=== PATIENT | male | born 1955 | race Caucasian/White ===

== ENCOUNTER 2016-09-11 11:16 | Observation (INO) | payer BC ==
[2016-09-11] MEDS ORDERED: NS 0.9% 1000 ML* 1,000 ML IV ONE ×3 (11:18→13:57)
--- NOTE | 2016-09-11 11:44 | RAD ---
INDICATION: Neurologic changes, code solitario. COMPARISON: Comparison is made with a prior CT of the brain from July 27, 2008. TECHNIQUE: Contiguous axial sections of the brain were obtained from the skull base to the vertex without contrast. FINDINGS: The ventricles, cisterns and sulci are within normal limits. There is a small area of decreased attenuation present in the subcortical white matter in the posterior left frontal lobe possibly representing a subacute or chronic infarct. No mass effect is present. No other focal abnormalities are seen. There is no evidence for hemorrhage. No significant focal osseous abnormality is seen. The visualized portion of the paranasal sinuses and mastoid air cells appear clear. The results of this examination were called to David clinician at 1134 hours. IMPRESSION: THERE IS A SMALL AREA OF DECREASED DENSITY WITHIN THE SUBCORTICAL WHITE MATTER IN THE POSTERIOR LEFT FRONTAL LOBE POSSIBLY REPRESENTING A SUBACUTE OR CHRONIC INFARCT. RECOMMEND MRI IMAGING FOR FURTHER EVALUATION.
--- NOTE | 2016-09-11 11:50 | RAD ---
INDICATION: Change in mental status. Carotid solitario. COMPARISON: Chest x-ray September 23, 2011 TECHNIQUE: An AP seated view is submitted. FINDINGS: Bones/Soft Tissues: There are no acute bony findings. Cardiomediastinal: The cardiomediastinal silhouette is normal. Lungs: There are no acute infiltrates. There are chronic pleural and parenchymal changes in the left lung base with left-sided rib fractures with deformity. Pleura: There are no pleural effusions. Other: None IMPRESSION: PERSISTENT PLEURAL AND PARENCHYMAL CHANGES LEFT LUNG BASE WITH RIB FRACTURES. NO ACUTE FINDINGS.
[2016-09-11 13:02] LABS: Hematocrit 42 % (42-52); Hemoglobin 14.2 g/dl (14.0-18.0); Mean Corpuscular HGB Conc 34 g/dl (31-36); Mean Corpuscular Hemoglobin 32 pg (27-31); Mean Corpuscular Volume 95 fL (80-94); Mean Platelet Volume 9 um3 (7.4-10.4); Red Blood Count 4.41 10^6/ul (4.0-5.4); Red Cell Distribution Width 14 % (10.5-15)
[2016-09-11 13:35] LABS: Albumin 4.2 g/dL (3.2-5.2); BUN/Creatinine Ratio 12.9 (8-20); Calcium 9.5 mg/dL (8.6-10.3); EGFR African American 62.2 (>60); EGFR Non-African American 48.4 (>60); Globulin 2.8 g/dL (2-4); HDL Cholesterol 34.8 mg/dL; Total Bilirubin 0.5 mg/dL (0.2-1.0)
--- NOTE | 2016-09-11 13:37 | RAD ---
Indication: Neck pain after fall. CT of the cervical spine was obtained in the axial plane. Sagittal and coronal reconstructed images were obtained. The skull base demonstrates no evidence of fracture. Mastoid air cells are unremarkable. Degenerative changes of the atlantoaxial joint is noted. No fracture of C1 or C2 is noted. At C2-C3 spondylitic ridge flattens the thecal sac. Facet arthropathy is noted. No central or foraminal stenosis is noted. At C3-C4 spondylitic ridge is noted. Bilateral uncovertebral joint hypertrophy narrows both foramen worse on the right than on the left. At C4-C5 spondylitic ridge is noted. Bilateral uncovertebral joint hypertrophy with no definite foraminal stenosis is noted. At C5-C6 spondylitic ridge is noted. Bilateral uncovertebral hypertrophy is noted. Right uncovertebral joint hypertrophy narrows the right foramen. At C6-C7 bilateral uncovertebral joint hypertrophy is noted. No central foraminal stenosis is noted. There is calcification of the anterior longitudinal ligament from C3-C4, C4-C5 and C5-C6. IMPRESSION: No fracture is identified. Extensive degenerative disc disease at C3-C4, C4-C5, C5-C6 and C6-C7 with uncovertebral joint hypertrophy bilateral foraminal stenosis at multiple levels.
[2016-09-11 13:40] LABS: Potassium 6.1 mmol/L (3.5-5.0)
[2016-09-11] MEDS ORDERED: Calcium Gluconate INJ* 1 GM in NS 0.9% 50 ML* 50 ML IVPB ONE (13:42)
[2016-09-11] MEDS ORDERED: Insulin REGULAR(*) 1 UNITS UNIT IV PUSH ONE (13:42)
[2016-09-11] MEDS ORDERED: Dextrose 50% Syringe 50 ML* 25 GM/50 ML SYRINGE IV PUSH ONE (13:42)
[2016-09-11] MEDS ORDERED: Albuterol 2.5 MG/3 ML NEB.SOL* (0.083%) INH ONE (13:42)
[2016-09-11] MEDS ORDERED: Sodium Polystyrene ORAL.SOL* 15 GM/60 ML BTL PO ONE (13:42)
[2016-09-11] MEDS ORDERED: Morphine INJ* 4 MG/ML 1 ML SYRINGE IM ONE (14:25)
[2016-09-11] MEDS ORDERED: cefTRIAXone(*) 1 GM in NS 0.9% 50 ML* 50 ML IVPB ONE (14:26)
[2016-09-11] MEDS ORDERED: Ondansetron INJ* 2 MG/ML VIAL IV ONE (14:27)
[2016-09-11 15:41] LABS: Hematocrit 39 % (42-52); Hemoglobin 13.1 g/dl (14.0-18.0); Mean Corpuscular HGB Conc 34 g/dl (31-36); Mean Corpuscular Hemoglobin 32 pg (27-31); Mean Corpuscular Volume 95 fL (80-94); Mean Platelet Volume 9 um3 (7.4-10.4); Red Blood Count 4.08 10^6/ul (4.0-5.4); Red Cell Distribution Width 14 % (10.5-15); White Blood Count 14.1 10^3/ul (3.5-10.8)
[2016-09-11 15:47] LABS: Urine Bilirubin Negative (Negative); Urine Glucose Negative (Negative); Urine Nitrite Negative (Negative)
[2016-09-11 15:58] LABS: Albumin 3.7 g/dL (3.2-5.2); BUN/Creatinine Ratio 16.8 (8-20); Calcium 8.5 mg/dL (8.6-10.3); EGFR African American 71.1 (>60); EGFR Non-African American 55.3 (>60); Globulin 2.5 g/dL (2-4); Potassium 4.3 mmol/L (3.5-5.0); Total Bilirubin 0.6 mg/dL (0.2-1.0); Total Protein 6.2 g/dL (6.4-8.9)
[2016-09-11] MEDS ORDERED: Dextrose 50% Syringe 50 ML* 25 GM/50 ML SYRINGE IV PUSH PRN (16:31)
[2016-09-11] MEDS ORDERED: Acetaminophen TAB* 325 MG PO PRN (16:31)
[2016-09-11] MEDS ORDERED: Ondansetron INJ* 2 MG/ML VIAL IV PRN (16:31)
[2016-09-11] MEDS ORDERED: Thiamine IV* 100 MG, Folic Acid IV* 1 MG, Multiple Vitamin IV ADULT* 10 ML in NS 0.9% 1... IV ONE (16:38)
[2016-09-11] MEDS ORDERED: LORazepam TAB(*) 1 MG PO SCH (17:00)
--- NOTE | 2016-09-11 17:16 | ED ---
Antonio Rodriguez Billy, scribed for Sky Whatley MD on 09/11/16 at 1158 . Neurological HPI - HPI Summary HPI Summary: Patient is a 61 year-old male with a history of TIA BIBA to [facility] for evaluation of focal neurological deficit this morning. He states that he had been drinking alcohol last night, and consumed "close to one bottle of rum." Patient reports that he had an unwitnessed syncopal episode at approximately 0900 as he was on the way to the bathroom and estimates that he was unconscious for approximately 15 minutes. When he awoke, he had numbness, weakness, and tingling to both upper extremities. EMS states that on arrival, right information technology program manager strength was weaker than left and they appreciated RUE pronator drift. Physician Specialist strength became equal en route, and drift improved but did not resolve entirely. They did not appreciate any facial droop or speech impairment. - History of Current Complaint Chief Complaint: EDNeurologicalDeficit Stated Complaint: CODE DANIELLE Time Seen by Provider: 09/11/16 11:17 Last Known Well Date: 09/11/16 09:00 Hx Obtained From: Patient Onset/Duration: Sudden Onset Timing: Constant Onset Severity: Moderate Current Severity: Moderate Neurological Deficit Location: RUE Character: Numbness/Tingling, Motor Weakness Episode Lasting: Seconds/Minutes Number of Episodes: 1 Syncope Context: Unwitnessed Aggravating: Unknown Alleviating: Unknown Associated Signs and Symptoms: Positive: Weakness, Numbness - Allergy/Home Medications Allergies/Adverse Reactions: Allergies Allergy/AdvReac Type Severity Reaction Status Date / Time No Known Allergies Allergy Verified 09/11/16 12:32 Home Medications: Home Medications Amitriptyline TAB* [Elavil TAB*] 25 mg PO BEDTIME 09/11/16 [History Confirmed ] Atorvastatin* [Lipitor*] 20 mg PO DAILY 09/11/16 [History Confirmed 09/11/16] Carvedilol TAB* [Coreg TAB*] 6.25 mg PO BID 09/11/16 [History Confirmed 09/11/16 ] Glimepiride (NF) 4 mg PO QAM 09/11/16 [History Confirmed 09/11/16] Niacin 500 mg PO DAILY 09/11/16 [History Confirmed 09/11/16] Jackson-3 Fatty Acids (Nf) [Fish Oil (NF)] 2,000 mg PO DAILY 09/11/16 [History Confirmed 09/11/16] Ramipril CAP* [Altace CAP*] 10 mg PO DAILY 09/11/16 [History Confirmed 09/11/16] Spironolactone TAB* [Aldactone TAB*] 25 mg PO DAILY 09/11/16 [History Confirmed 09/11/16] Tamsulosin CAP* [Flomax CAP*] 0.4 mg PO BEDTIME 09/11/16 [History Confirmed 10/23] Warfarin TAB(*) [Coumadin TAB(*)] 5 mg PO SUTUTH 09/11/16 [History Confirmed 10/23] Warfarin TAB(*) [Coumadin TAB(*)] 10 mg PO MOWEFRSA 09/11/16 [History Confirmed 09/11/16] Zolpidem TAB* [Ambien TAB*] 10 mg PO BEDTIME PRN 09/11/16 [History Confirmed 10/23] metFORMIN* [Glucophage 500 MG TAB *] 1,000 mg PO BID 09/11/16 [History Confirmed 09/11/16] PMH/Surg Hx/FS Hx/Imm Hx Endocrine/Hematology History: Reports: Hx Diabetes Cardiovascular History: Reports: Hx Hypertension, Hx Myocardial Infarction Neurological History: Reports: Hx Transient Ischemic Attacks (TIA) Infectious Disease History: No Infectious Disease History: Denies: Traveled Outside the [place] in Last 30 Days - Family History Known Family History: Positive: Cardiac Disease, Diabetes - Social History Alcohol Use: Daily Hx Tobacco Use: Yes Smoking Status (MU): Current Every Day Smoker Review of Systems Negative: Fever Positive: Weakness, Paresthesia, Numbness, Syncope All Other Systems Reviewed And Are Negative: Yes Physical Exam - Summary Physical Exam Summary: VITAL SIGNS: Reviewed. GENERAL: Patient is a well developed and nourished male who is lying comfortable in the stretcher. Patient is not in any acute respiratory distress. HEAD AND FACE: There are abrasions to the right side of the head, face, and nose. EYES: PERRLA, EOMI x 2. EARS: Hearing grossly intact. MOUTH: Oropharynx within normal limits. NECK: Supple, trachea is midline, no adenopathy, no JVD, no carotid bruit. CHEST: Symmetric, no tenderness at palpation LUNGS: Clear to auscultation bilaterally. No wheezing or crackles. CVS: Regular rate and rhythm, S1 and S2 present, no murmurs or gallops appreciated. ABDOMEN: Soft, non-tender. Bowel sounds are normal. No abdominal abnormal pulsations. EXTREMITIES: Full ROM in all major joints, no edema, no cyanosis or clubbing. NEURO: Alert and oriented x 3. Speech is normal and follows commands. There is positive right upper extremity weakness and drift. GCS = 15. NIHSS = 1. See NIHSS findings for more details. SKIN: Dry and warm Triage Information Reviewed: Yes Vital Signs On Initial Exam: Initial Vitals Temp Pulse Resp BP Pulse Ox 97.6 F 81 16 91/56 92 09/11/16 11:45 09/11/16 11:45 09/11/16 11:45 09/11/16 11:45 09/11/16 11:45 Vital Signs Reviewed: Yes Diagnostics - Vital Signs Vital Signs Temp Pulse Resp BP Pulse Ox 09/11/16 11:45 97.6 F 81 16 91/56 92 - Laboratory Result Diagrams: 09/11/16 15:29 09/11/16 15:29 Lab Statement: Any lab studies that have been ordered have been reviewed, and results considered in the medical decision making process. - Radiology CXR Radiology Interpretation Completed By: Radiologist - PERSISTENT PLEURAL AND PARENCHYMAL CHANGES LEFT LUNG BASE WITH RIB FRACTURES. NO ACUTE FINDINGS. - CT Brain CT Interpretation Completed By: Radiologist - THERE IS A SMALL AREA OF DECREASED DENSITY WITHIN THE SUBCORTICAL WHITE MATTER IN THE POSTERIOR LEFT FRONTAL LOBE POSSIBLY REPRESENTING A SUBACUTE OR CHRONIC INFARCT. RECOMMEND MRI IMAGING FOR FURTHER EVALUATION. Cervical spine CT Interpretation Completed By: Radiologist - No fracture is identified. Extensive degenerative disc disease at C3-C4, C4-C5, C5-C6 and C6-C7 with uncovertebral joint hypertrophy bilateral foraminal stenosis at multiple levels. - EKG 1129 EKG Interpretation: NSR 81 bpm, Q-wave in III and V4, no ST elevation 1313 EKG Interpretation: NSR 90 bpm, low-voltage EKG, no STEMI NIH Scale - NIH Scale Level of Consciousness: Alert/Keenly Responsive Ask Patient the Month and His/Her Age: Both Correct Ask Pt to Open/Close Eyes and Physician Specialist/Release Non-Paretic Hand: Both Correctly Best Gaze (Only Horizontal Eye Movement): Normal Visual Field Testing: No Visual Loss Facial Paresis-Pt to Smile & Close Eyes or Grimace Symmetry: Normal/Symmetrical Motor Function - Right Arm: Drifts LT 10 seconds Motor Function - Left Arm: No Drift-Holds 10 Seconds Motor Function - Right Leg: No Drift-Holds 10 Seconds Motor Function - Left Leg: No Drift-Holds 10 Seconds Limb Ataxia-Must be out of Proportion to Weakness Present: Absent Sensory (Use Pinprick to Test Arms/Legs/Trunk/Face): Normal Best Language (Describe Picture, Name Items): No Aphasia Dysarthria (Read Several Words): Normal Extinction and Inattention: No Abnormality Total Score: 1 Re-Evaluation - Re-Evaluation First Eval Re-Evaluation Time: 11:53 Comment: Re-evaluation with Dr. Linder in room. Course/Dx - Course Assessment/Plan: Patient is a 61 year-old male with a history of TIA BIBA to [facility] for evaluation of focal neurological deficit this morning. He states that he had been drinking alcohol last night, and consumed "close to one bottle of rum." Patient reports that he had an unwitnessed syncopal episode at approximately 0900 as he was on the way to the bathroom and estimates that he was unconscious for approximately 15 minutes. When he awoke, he had numbness, weakness, and tingling to both upper extremities. EMS states that on arrival, right information technology program manager strength was weaker than left and they appreciated RUE pronator drift. Physician Specialist strength became equal en route, and drift improved but did not resolve entirely. They did not appreciate any facial droop or speech impairment. Bloodwork WNL except for WBC of 19 without bandemia. Potassium of 6.1, CO2 of 9, creatinine of 1.47, lactic acid 5.1, creatinine kinase 752. Initially, when he was seen, he had RUE weakness, therefore we called a Code Danielle. CT of the head shows there is a small area of decreased density within the subcortical white matter in the posterior left frontal lobe possibly representing a subacute or chronic infarct. Therefore, I requested consult from Dr. Linder. After his assessment, he reports that it could be a subacute infarct, however he recommended CT of the c-spine, and if negative, the patient will need MRI of the brain and c-spine without contrast. He is already taking Coumadin, therefore he is not a candidate for tPA, and also the time of onset of symptoms is unknown. In the ED course, patient was hypotensive and had an increased WBC and increased lactic acid, therefore he was started on 3 IV boluses of fluids, and he was given Rocephin as a broad spectrum antibiotic. The bloodwork showed that the patient was hyperkalemic without EKG changes, therefore he was given insulin, dextrose, kayexalate, and albuterol. I held the calcium gluconate since he had no EKG changes. At this time, I discussed the case with Dr. De La Garza from ICU services who examined the patient. Dr. De La Garza and Dr. Candelaria decided to repeat the bloodwork and will admit the patient to telemetry instead of ICU. The patient was also given morphine after his BP improved to 120/72. At this time, he is much more comfortable and will be admitted to Dr. Alexander service. I believe that the symptoms are secondary to possible ischemic CVA, syncope, rhabdomyolysis, and hyperkalemia. - Diagnoses Provider Diagnoses: Ischemic CVA, Syncope, Rhabdomyolysis, Hyperkalemia During the Visit The Following Alert/Code Occurred: Code Fleming - Code Danielle called at 1115 - Physician Notifications Discussed Care of Patient With: Dr. Sidhu (radiology) @ 1138: CT brain findings reviewed. Dr. Linder (neurology) @ 1141: will see in ED. Dr. Linder ( neurology) @ 1200: recommends CT c-spine. Patient is not eligible for tPA because he is on Coumadin. Additionally, the patient's reported time of onset is unreliable due to alcohol intoxication. Dr. Linder (neurology) @ 1233: recommends MRI w/o contrast of the head and neck if the CT c-spine returns negative. Dr. De La Garza (database support) @ 1418: recommends morphine and rocephin. Dr. Candelaria (hospitalist) @ 1528: accepts admission. Dr. Candelaria (hospitalist) @ 1623: patient to telemetry. - Critical Care Time Critical Care Time: 30-74 min Discharge - Discharge Plan Condition: Stable Disposition: ADMITTED TO [facility] Referrals: Willie Grimaldo MD [Primary Care Provider] - The documentation as recorded by the Antonio benavides Billy accurately reflects the service I personally performed and the decisions made by , Sky Whatley MD.
[2016-09-11] MEDS: HYDROmorphone* 1 MG/ML 1 ML SYR IV SLOW PU PRN ×2 (17:37→22:20)
--- NOTE | 2016-09-11 17:39 | RAD ---
HISTORY: Right-sided weakness. COMPARISONS: None TECHNIQUE: The following sequences were obtained of the head: Sagittal T1-weighted images, axial T2-weighted images, axial FLAIR images, axial susceptibility weighted images, axial T1-weighted images. Additionally, axial diffusion-weighted images were obtained with calculated apparent diffusion coefficients.. FINDINGS: HEMORRHAGE/INFARCT: There is no hemorrhage or acute infarct. MASSES/SHIFT: There is no mass or shift. EXTRA-AXIAL SPACES/MENINGES: There are no extra-axial fluid collections. SULCI AND VENTRICLES: The sulci and ventricles are normal in size and position for the patient's stated age. CEREBRUM: In the white matter tracts of the left parietal lobe (image 20 of 28) there is a 1 cm T2 bright focus with T2 bright focus extending into the adjacent cortex of the left parietal lobe. There is no corresponding increased signal seen on the diffusion-weighted imaging. There is also increased signal in the periventricular white matter as well as a 3 mm focus of increased T2 signal in the white matter tracts of the left frontal lobe. Elsewhere the solitario-white matter appears to be adequately preserved. BRAINSTEM: There are no focal parenchymal abnormalities. CEREBELLUM: There are no focal parenchymal abnormalities. The cerebellar tonsils are normal in size and position. SELLA: The sella is normal. PINEAL: The pineal region is clear. CP ANGLE/TEMPORAL BONES: The labyrinthine structures are grossly normal. VESSELS: Normal flow-voids are noted within the visualized vertebral vasculature. DIFFUSION ABNORMALITIES: There are no diffusion abnormalities. PARANASAL SINUSES/MASTOIDS: The paranasal sinuses are clear. ORBITS: The orbits are unremarkable. BONES AND SOFT TISSUE: No bone or soft tissue abnormalities are noted. IMPRESSION: THERE IS A 1 CM FOCUS OF INCREASED FLUID DENSITY IN THE LEFT PARIETAL LOBE WHITE MATTER TRACTS THAT EXTENDS TO THE NEIGHBORING CORTEX. THERE IS NO CORRESPONDING INCREASED SIGNAL ON DIFFUSION-WEIGHTED IMAGING AND THEREFORE A SUBACUTE TO CHRONIC IS FAVORED. THERE IS NO EVIDENCE OF ACUTE TERRITORIAL INFARCTION OR ACUTE INTRACRANIAL HEMORRHAGE.
--- NOTE | 2016-09-11 18:05 | RAD ---
INDICATION: Right upper extremity weakness COMPARISON: Same day CT the cervical spine that demonstrates advanced multilevel degenerative change. TECHNIQUE: Coronal T2, sagittal T1, inversion recovery, T2, and axial T1, T2, and gradient echo images were acquired. FINDINGS: The sella and craniocervical junction appear unremarkable. There are no intrinsic abnormalities of the cord. On the sagittal view there is mild reversal of the normal cervical lordosis. The vertebral bodies and facet joints are otherwise appropriately aligned. The atlantodental interval is normal. Axial view images: Less otherwise specified below there is no significant central canal stenosis or neural foraminal stenosis. C2-C3: There is no significant central canal or neural foraminal stenoses. C3-C4: There is broad-based disc protrusion eccentric towards the right that extends into the neural foramen and combines with facet arthropathy and uncovertebral hypertrophy to cause severe central canal stenosis, severe right neural foraminal stenosis and mild left neural foraminal stenosis. C4-C5: Broad-based disc protrusion combines with facet arthropathy and uncovertebral hypertrophy to cause moderate central canal stenosis and mild bilateral neural foraminal stenosis. C5-C6: Broad-based disc protrusion combines with facet arthropathy and uncovertebral hypertrophy to cause mild central canal stenosis, moderate right neural foraminal stenosis and mild left neural foraminal stenosis. C6-C7: Broad-based disc protrusion eccentric towards the left combines with facet arthropathy and uncovertebral hypertrophy causing very mild central canal stenosis and moderate left neural foraminal stenosis. C7-T1: There is no significant central canal or neural foraminal stenoses. IMPRESSION: Multilevel degenerative change causing multilevel central canal and neural foraminal stenoses most severely affecting C3/C4.
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
[2016-09-11 21:02] LABS: Troponin I 0.01 ng/mL (<0.04)
[2016-09-11] MEDS: Insulin LISPRO* 1 UNITS UNIT SUBCUT SCH (21:47)
[2016-09-11] MEDS: Amitriptyline TAB* 25 MG PO SCH (22:35)
[2016-09-11] MEDS: Carvedilol TAB* 6.25 MG PO SCH (22:35)
[2016-09-11] MEDS: Zolpidem TAB* 10 MG PO PRN (22:36)
[2016-09-11] MEDS: Tamsulosin CAP* 0.4 MG PO SCH (22:36)
--- NOTE | 2016-09-12 00:59 | HP ---
HISTORY AND PHYSICAL: DATE OF ADMISSION: 09/11/16 PRIMARY CARE PROVIDER: Dr. Grimaldo ATTENDING PHYSICIAN WHILE IN THE HOSPITAL: Dr. Ronel Avelar *(report dictated by Juventino Driver NP). CHIEF COMPLAINT: Syncope. HISTORY OF PRESENT ILLNESS: Mr. Herring is a 61-year-old male patient. He has a history of coronary artery disease, history of CO, TIA, diabetes, and hypertension. He also has a history of alcohol use. He says he binge drinks at least twice a week in the office and when he goes to a bar, he drinks to excess. He comes in to the ER today stating that last night he was at [facility]. He drank several drinks of rum. He says he went to bed around 10 o' clock in his recliner. He thinks around 6 o'clock in the morning, he woke up and went to go use the bathroom. He says while he was walking, he became weak. He fell to his knees, crawled to the bathroom, got on the toilet, was going to have a bowel movement, and the next thing he knew, it was 9 o'clock in the morning. He woke up and he was between the bathroom toilet and the edge of his bathtub. The patient says that he does not recall this. When he came to, both his arms were very weak. He could not move his arms. He had pain in his neck. It took him about 45 minutes to be able to move and crawl, to get to the phone and call 911. He came in to the hospital. He denies any history of seizures or syncope in the past. He says that he thinks he may have been on the ground for about 3 hours. He came in to the ER and it was found that he has right-sided weakness on the arm and a Code Danielle was called. He was evaluated by Dr. Linder. We were asked to evaluate the patient in admission. The patient states that he had no chest pain to his recollection before or after the fall, and there were no complaints of incontinence of stool or urine. He was evaluated in the ER and he was noted to have several lab abnormalities. He had an elevated white count. In addition to this, his potassium was elevated , his bicarb was elevated and he had a high lactic acid. Hospitalist service was asked to evaluate for admission. PAST MEDICAL HISTORY: Significant for: 1. CAD. 2. CO. 3. TIA. 4. Diabetes. 5. Hypertension. PAST SURGICAL HISTORY: Significant for heart catheterization. HOME MEDICATIONS: Include: 1. Metformin 1000 mg p.o. twice a day. 2. Ambien 10 mg at bedtime as needed. 3. Warfarin 5 mg Friday, Friday, . 4. Warfarin 10 mg Friday, Friday, Friday, Friday. 5. Flomax 0.4 mg p.o. at bedtime. 6. Spironolactone 25 mg p.o. daily. 7. Altace 10 mg daily. 8. [place]-3 fatty acids 2000 mg p.o. daily. 9. Niacin 500 mg daily. 10. Glimepiride 4 mg daily. 11. Carvedilol 6.25 mg p.o. b.i.d. 12. Lipitor 20 mg daily. 13. Amitriptyline 25 mg p.o. at bedtime. ALLERGIES TO MEDICATIONS: Include no known drug allergies. FAMILY HISTORY: His father had a history of CO. Mother's history is reviewed and noncontributory. SOCIAL HISTORY: He is a former smoker. He does binge drink. He says he binge drinks to excess at least twice a week. He lives alone. Surrogate decision maker is his sister. REVIEW OF SYSTEMS: There is no documented fever. He denied any significant weight change. There was no double vision. There is no ear discharge. He denies having any rhinorrhea. There is no sore throat. No thyroid enlargement. Denied having any chest pain prior to or after the fall. He denies having any nausea, vomiting, or any abdominal pain. Denied any chest pain and he denied having any shortness of breath. No abdominal pain. No nausea. No vomiting. No dysuria. No frequency. There was a loss of consciousness and no report of seizure. Review of 14 systems completed, all others negative. PHYSICAL EXAMINATION GENERAL: At this time, Mr. Herring is a 61-year-old male patient. He appears well nourished, well developed. He does not appear to be in any acute distress. VITAL SIGNS: Blood pressure 126/75, pulse of 100, respirations 18, O2 sat 96%, and temperature 97.6. HEENT: Head atraumatic with the exception he does have an abrasion to his nose. Otherwise atraumatic. Eyes: EOMs intact. Sclerae are anicteric. Pupils react to light. Throat: Oral mucosa appeared to be dry. No oropharyngeal erythema. NECK: Supple. There was no point tenderness along the palpation of the cervical spine. LUNGS: Clear to auscultation. No wheezes, rales, or rhonchi. HEART: Sounds S1, S2. Regular rate and rhythm. No murmurs, rubs, or gallops. ABDOMEN: Soft, flat, and nontender. Bowel sounds present. EXTREMITIES: Pulses were 2+ throughout. He has 5/5 strength to lower extremities, 5/5 strength in the left upper extremity. In the right upper extremity, he had about 3/5 strength. The right upper extremity is certainly weaker than the left. NEUROLOGIC: He is awake, he is alert, and he is oriented x3. His speech is clear. His tongue is midline. He had a weaker shuttler on the right compared to the left. Again, he is unable to lift the arm completely above his shoulder as he says that there is obvious weakness to the right arm, it is about a 3/5 strength compared to the left. He is unable to do [id number] on the right side because of the weakness, he can do it on the left side. No facial drooping. No other gross focal deficits. SKIN: Intact. LABORATORY DATA AND DIAGNOSTIC STUDIES: His labs today revealed WBC initially 19.0, now 14.1. His hemoglobin was 13.1, hematocrit 39, his RBCs were 4.08. His platelet count was 174. His INR was 3.63. His PTT was 35.6. Sodium was 132, the potassium was 4.3, the chloride was 101. The bicarb was 19, it was 9. Potassium initially was 6.3, it is now 6.1. His BUN was 22, creatinine 1.31, I do not have a previous for comparison. His lactic was 3.8, it was 5.1. Glucose 179. His AST 51, ALT 66, CK 752, troponin 0.00. Albumin of 4.2. Urine was obtained, it was negative. Toxicology is pending. He had multiple imaging here in the ED and a brain CT which showed impression: Small area of decreased density within the subcortical white matter in the posterior left frontal lobe, possibly representing a subacute or chronic infarct. Recommend MRI imaging for further evaluation. He had a chest x-ray obtained today as well, which revealed persistent pleural and parenchymal changes, left lung base, with rib fractures, no acute findings. He had a cervical spine CT which showed impression: No fracture is identified. Extensive degenerative disk disease at C3-4, C4-5, C5-6, C6-7 with uncovertebral joint hypertrophy. Lateral foraminal stenosis at multiple levels. He had an EKG obtained today which showed a normal sinus rhythm, rate of 85. No ST elevations or T-wave inversions. No previous EKG for comparison. Old medical records were reviewed. ASSESSMENT AND PLAN: Mr. Herring is a 61-year-old male patient coming in to the ER today with a syncopal episode after a night of binge drinking. Hospitalist service was asked to evaluate for admission because of the focal weakness. He will be admitted under observation status for: 1. Syncope. Suspect the etiology of this is probably vasovagal. He was starting to have a bowel movement when this happened, but I do think we should cycle his troponins, get an echo. I will try to get orthostatic blood pressures when able and we will place him on telemetry. We will hydrate him and we will continue to follow. 2. Right arm weakness: Because of the fall and the trauma, certainly he could have a cervical myopathy and he is still having pain down that right arm, which certainly would go with his cervical radiculopathy. My concern is he is on Coumadin. I want to make sure he does not have an epidural hematoma. I am getting an MRI. I am not going to give him anymore Coumadin until I know what is going on with his cervical spine, an MRI is pending. Obviously, if there are any concerns there, we will get in touch with Neurosurgery. I did touch base with Neurology who evaluated the patient and they are in agreement with this plan. Also, getting an MRI of the brain as well. 3. Hyperkalemia: It is now resolved. We will continue to follow. 4. Lactic acidosis: The etiology of this is unclear. Question if he had a seizure, which certainly could explain the acidosis. So, at this point, I would like to get an EEG. I am also going to panculture him to make sure there is not any underlying sepsis, but his chest x-ray and urine are negative. He is not having any focal symptoms. He does have a leukocytosis again. It could be a leukemoid reaction from the fall and him being on the floor. We will monitor. 5. Coronary artery disease: We will continue the statin and beta indigo. Again, no aspirin for the time being and holding his blood thinners. 6. History of transient ischemic attack: He says he is on the warfarin because of the history of transient ischemic attack. He specifically denied any PE, DVT, or atrial fibrillation. Holding the Coumadin, we will continue with the statin therapy for the time being until we know again what is going on with the cervical spine on MRI. 7. Diabetes: We will go ahead and put him on lispro sliding scale. 8. Hypertension: Continue his medications with the exception of his ramipril and his spironolactone as he does appear to be dehydrated and the fact that he did have some acute kidney injury. His last creatinine was normal, that was 5 years ago. 9. DVT prophylaxis: For the time being, just SCDs. 10. Code status: Full code. 11. ETOH abuse: I did put him on the WA protocol. We will give him a banana bag. 12. Fluids, electrolytes, and nutrition: He is n.p.o. until again we have more imaging of the cervical spine. TIME SPENT: Time spent on the admission was 60 minutes; greater than half the time was spent [id number] with the patient obtaining my history and physical, other half the time spent going over the plan of care with the patient and implementing plan of care. I did discuss the plan of care with my attending, Dr. Avelar; she is in agreement. JUVENTINO DRIVER NP CC: Dr. Grimaldo* [id number]/[facility] #: [id number] [facility]
[2016-09-12] MEDS: Insulin LISPRO* 1 UNITS UNIT SUBCUT SCH ×4 (01:12→18:18)
[2016-09-12] MEDS: HYDROmorphone* 1 MG/ML 1 ML SYR IV SLOW PU PRN ×5 (03:16→20:22)
[2016-09-12 05:11] LABS: Hematocrit 38 % (42-52); Hemoglobin 12.7 g/dl (14.0-18.0); Mean Corpuscular HGB Conc 34 g/dl (31-36); Mean Corpuscular Hemoglobin 32 pg (27-31); Mean Corpuscular Volume 94 fL (80-94); Mean Platelet Volume 9 um3 (7.4-10.4); Red Cell Distribution Width 14 % (10.5-15); White Blood Count 11.4 10^3/ul (3.5-10.8)
[2016-09-12 05:16] LABS: BUN/Creatinine Ratio 19.1 (8-20); Calcium 8.4 mg/dL (8.6-10.3); EGFR Non-African American 86.3 (>60); Potassium 3.7 mmol/L (3.5-5.0)
[2016-09-12 06:29] LABS: Urine Bilirubin Negative (Negative); Urine Glucose Negative (Negative); Urine Nitrite Negative (Negative)
[2016-09-12] MEDS: Multivitamins/Minerals TAB PO SCH (08:14)
[2016-09-12] MEDS: Atorvastatin* 20 MG TAB PO SCH (08:14)
[2016-09-12] MEDS: Folic Acid TAB* 1 MG PO SCH (08:14)
[2016-09-12] MEDS: Thiamine TAB* 100 MG TAB PO SCH (08:14)
[2016-09-12] MEDS: Carvedilol TAB* 6.25 MG PO SCH ×2 (08:15→20:23)
--- NOTE | 2016-09-12 11:09 | CONSULT ---
Consult Consult: Neurosurgery Consult Date of consult: 09/12/16 Reason for consult: Right upper extremity weakness HPI: This is a 61 year old male with past medical history significant for CAD, history of OH, diabetes, history of TIA and HTN who presented to the [facility] ED on 09/11/16 after passing out while on the toilet and sustaining an injury to the head. After recovering from the incident, he was immediately experiencing bilateral upper extremity tenderness and numbness, worse in the right arm and [id number] of the right arm. He states that today, the right arm is more weak than yesterday. Currently, he reports posterior neck soreness, pain and sensitivity of the bilateral upper extremities, numbness of the bilateral upper extremities into the index fingers and thumbs. He is unable to lift the right arm off the bed. He has a history of neck soreness and pain which he reports is secondary to cervical spondylosis. Prior to the fall, he has never experienced upper extremity symptoms. He denies weakness of the left arm. He denies headache , vision changes, nausea. Denies numbness, tingling, weakness and pain of the bilateral lower extremities. MRI of the cervical spine is available for review. Past medical history: 1. Coronary artery disease 2. Hypertension 3. Diabetes 4. TIA 5. OH Allergies: No known allergies Home medications: 1. Amitriptyline TAB* [Elavil TAB*] 25 mg PO BEDTIME 09/11/16 [History Confirmed 09/11/16] 2. Atorvastatin* [Lipitor*] 20 mg PO DAILY 09/11/16 [History Confirmed 09/11/16] 3. Carvedilol TAB* [Coreg TAB*] 6.25 mg PO BID 09/11/16 [History Confirmed 09/11] 4. Glimepiride (NF) 4 mg PO QAM 09/11/16 [History Confirmed 09/11/16] 5. Niacin 500 mg PO DAILY 09/11/16 [History Confirmed 09/11/16] 6. [place]-3 Fatty Acids (Nf) [Fish Oil (NF)] 2,000 mg PO DAILY 09/11/16 [History Confirmed 09/11/16] 7. Ramipril CAP* [Altace CAP*] 10 mg PO DAILY 09/11/16 [History Confirmed ] 8. Spironolactone TAB* [Aldactone TAB*] 25 mg PO DAILY 09/11/16 [History Confirmed 09/11/16] 9. Tamsulosin CAP* [Flomax CAP*] 0.4 mg PO BEDTIME 09/11/16 [History Confirmed 09/11/16] 10. Warfarin TAB(*) [Coumadin TAB(*)] 5 mg PO SUTUTH 09/11/16 [History Confirmed 09/11/16] 11. Warfarin TAB(*) [Coumadin TAB(*)] 10 mg PO MOWEFRSA 09/11/16 [History Confirmed 09/11/16] 12. Zolpidem TAB* [Ambien TAB*] 10 mg PO BEDTIME PRN 09/11/16 [History Confirmed 09/11/16] 13. metFORMIN* [Glucophage 500 MG TAB *] 1,000 mg PO BID 09/11/16 [History Confirmed 09/11/16] Social history: He is a former smoker, drinks alcohol daily. ROS: full ROS completed; pertinent findings stated in HPI, all others negative. Physical exam: Vital Signs: Temp Pulse Resp BP Pulse Ox 99.2 F 104 26 129/83 93 09/12/16 08:05 09/12/16 10:17 09/12/16 10:17 09/12/16 10:17 09/12/16 10:17 General: Alert and oriented. Laying in bed with cervical collar in place. HEENT: EOMI, PERRLA, sclerae anicteric. Nares patent. Moist mucus membranes. Neck: Collar in place. Mild tenderness to palpation of posterior neck. CV: Radial pulses 2+ bilaterally. Pedal pulses palpable bilaterally. Lungs: Breathing is nonlabored. Lungs are clear. Abdomen: NABS. Abdomen is protuberant without distension. Nontender. Neuro: Speech is clear and coherent. CNII-XII intact. Bilateral upper extremities sensitive to palpation throughout, numbness of the index and thumbs. Right upper extremity weakness of the deltoid and biceps. Triceps, outcomes analyst and intrinsic strength intact in the RUE. Strength in LUE 5/5 in deltoid, biceps , triceps, outcomes analyst and intrinsic strength. Negative Hoffmans bilaterally. Imagin. MRI of the cervical spine on 09/11/16 shows disc bulge at C3-4 and spondylosis. Assessment: This is a 61 year old male who presented to the [facility] ED after a fall. MRI shows disc displacement at C3-4. Weakness of the right upper extremity biceps and deltoid appreciated on exam. Left upper extremity strength intact. 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 Plan: 1. No indication for surgery at this time.
[2016-09-12] MEDS: Gabapentin CAP(*) 300 MG PO SCH ×2 (12:59→20:22)
--- NOTE | 2016-09-12 13:18 | EEG ---
ELECTROENCEPHALOGRAPHY: DATE OF STUDY: 09/12/2016. He is an inpatient, room 433. REFERRING PROVIDER: Juventino Driver NP. CLINICAL HISTORY: Episode of loss of consciousness, prolonged time on the ground. MEDICATIONS: Include Coreg, Lipitor, insulin, Amitriptyline, Flomax, Hydromorphone, Lorazepam. EEG DESCRIPTION: This 16 channel EEG is remarkable for a background activity consisting of a reason ably well-formed alpha rhythm in the posterior derivations at about 9 cycles per second, which is as ymmetric. Moderate voltage beta activity is seen bifrontally and centrally. Occasional central slo wing is noted as well. Beta activity is fairly abundant. EKG tracing reveals wide complex with occ asional extra beats. Activation procedures were not attempted. The patient may drowse with central and bitemporal slowing, but stage 2 sleep is not achieved. There are no focal, lateralized, or epi leptiform abnormalities. INTERPRETATION: Essentially normal awake and drowsy EEG. [id number]/[facility] #: [id number]
--- NOTE | 2016-09-12 13:27 | PN ---
Subjective Date of Service: 09/12/16 Interval History: Patient seen this morning. Reports continued B/L arm pain, says R arm seems weaker to him today. No LE symptoms. Says he thinks he drank 3/4 bottle of liquor the night prior to admission but usually does not drink at home, never has had withdrawal symptoms before. Family History: Unchanged from Admission Social History: Unchanged from Admission Past Medical History: Unchanged from Admission Objective Active Medications: Acetaminophen (Tylenol Tab*) 650 mg PO Q4H PRN Amitriptyline HCl (Elavil Tab*) 25 mg PO BEDTIME JEANETTE Atorvastatin Calcium (Lipitor*) 20 mg PO DAILY JEANETTE Carvedilol (Coreg Tab*) 6.25 mg PO BID JEANETTE Dextrose (D50w Syringe 50 Ml*) 12.5 gm IV PUSH .FOR FS < 60 - SS PRN Folic Acid (Folvite Tab*) 1 mg PO DAILY JEANETTE Gabapentin (Neurontin Cap(*)) 300 mg PO TID JEANETTE Hydromorphone HCl (Dilaudid Iv*) 1 mg IV SLOW PU Q4H PRN Insulin Human Lispro (Humalog*) 0 units SUBCUT Q6HR JEANETTE Lorazepam (Ativan Tab(*)) 0 mg PO .PER WAM SCORE JEANETTE Multivitamins/Minerals (Theragran/Minerals Tab*) 1 tab PO DAILY JEANETTE Ondansetron HCl (Zofran Inj*) 4 mg IV Q6H PRN Tamsulosin HCl (Flomax Cap*) 0.4 mg PO BEDTIME JEANETTE Thiamine HCl (Vitamin B-1 Tab*) 100 mg PO DAILY JEANETTE Zolpidem Tartrate (Ambien Tab*) 10 mg PO BEDTIME PRN Vital Signs 09/11/16 09/11/16 09/11/16 17:13 17:30 17:37 Temperature 98.6 F Pulse Rate 90 Respiratory 18 16 Rate Blood Pressure 119/61 138/84 (mmHg) O2 Sat by Pulse 94 Oximetry 09/11/16 09/11/16 09/11/16 21:09 22:00 22:01 Temperature 98.5 F Pulse Rate 95 92 Respiratory 24 22 20 Rate Blood Pressure 136/75 136/75 (mmHg) O2 Sat by Pulse 93 Oximetry 09/12/16 09/12/16 09/12/16 11:40 12:07 12:59 Temperature 98.3 F Pulse Rate 98 Respiratory 18 20 20 Rate Blood Pressure 135/76 (mmHg) O2 Sat by Pulse 95 Oximetry Oxygen Devices in Use Now: None Appearance: Middle-aged, M, laying in bed in NAD Eyes: No Scleral Icterus Ears/Nose/Mouth/Throat: Mucous Membranes Moist Neck: NL Appearance and Movements; NL JVP, - - C-collar in place Respiratory: Symmetrical Chest Expansion and Respiratory Effort, Clear to Auscultation Cardiovascular: NL Sounds; No Murmurs; No JVD, RRR Abdominal: NL Sounds; No Tenderness; No Distention Lymphatic: No Cervical Adenopathy Extremities: No Edema Skin: No Rash or Ulcers Neurological: Alert and Oriented x 3, - - Pain to light touch in B/L upper and lower arms, reports tingling sensation in B/L 1st and 2nd fingers, LUE strength 5/5, significant weakness 2-3/5 in RUE deltoids, pain with elbow assessment Result Diagrams: 09/12/16 04:21 09/12/16 04:21 Assess/Plan/Problems-Billing Assessment: Syncope, rhabdomyolysis, B/L arm pain and weakness 2/2 cervical disc protrusion and/or brachial plexopathy in a 61 yo M with hx of HTN, CAD, DM, TIA - Patient Problems (1) Syncope Current Visit: Yes Comment: Likely vasovagal. No events on tele. Trops negative, EEG WNL. Echo pending. (2) Arm pain Current Visit: Yes Comment: and weakness. Appreciate Neurology and NS assistance. Due to brachial plexopathy vs cervical disc protrusion. No surgical intervention as per NS. Will get additional imaging of the shoulder and brachial plexus. Trial of gabapentin. PT/OT. (3) Rhabdomyolysis Current Visit: Yes Comment: CKs in 1300s, continue to trend until coming down. NS at 100 cc/hr (4) CALVIN (acute kidney injury) Current Visit: Yes Comment: and lactic acidosis. Resolved with IVF. (5) CAD (coronary artery disease) Current Visit: Yes Comment: Continue Coreg, statin. Will restart ASA once INR normalizes. (6) TIA (transient ischemic attack) Current Visit: Yes Comment: Reports he is on coumadin for TIA. INR is elevated. Will continue to hold coumadin. Follow INR. (7) HTN (hypertension) Current Visit: Yes Comment: Continue Coreg. Holding ACEI and spironolactone. (8) Alcohol abuse Current Visit: Yes Comment: Continue thiamine, folate, MVM. Continue WAM protocol. (9) Diabetes Current Visit: Yes Comment: HISS (10) DVT prophylaxis Current Visit: Yes Comment: Coumadin/SCDs
--- NOTE | 2016-09-12 15:57 | RAD ---
Indication: Pain and weakness in the right upper extremity. 3 views of the right shoulder demonstrates AC joint arthritis. There is no evidence of fracture. Degenerative changes of the glenohumeral joint is noted. IMPRESSION: AC joint arthritis. Degenerative changes of the glenohumeral joint is noted.
--- NOTE | 2016-09-12 17:03 | RAD ---
Indication: Unable to move RIGHT arm post fall. Comparison: September 12, 2016 RIGHT shoulder radiographs, September 11, 2016 cervical spine MRI, Technique: Helpra 1.5 Pretty BP809L with GEM suite. RIGHT unilateral brachial plexus protocol noncontrast MRI. Report: An extrinsic metallic artifact degrades image quality. No hematoma, soft tissue edema, or other lesion evident along the course of the RIGHT brachial plexus. Multilevel cervical spine degenerative spondylosis and facet joint osteoarthritis; refer to dedicated cervical spine MRI of September 11, 2016 for full description. No fracture evident within the [id number]. Advanced osteoarthritis at the RIGHT acromioclavicular joint. IMPRESSION: 1. No hematoma, soft tissue edema, or other lesion evident along the course of the RIGHT brachial plexus. 2. Multilevel cervical spine degenerative spondylosis and facet joint osteoarthritis with associated significant central canal and foraminal stenosis as documented on the dedicated cervical spine MRI of September 11, 2016 for full description.
[2016-09-12] MEDS: NS 0.9% 1000 ML* 1,000 ML IV SCH (18:04)
[2016-09-12] MEDS: Amitriptyline TAB* 25 MG PO SCH (20:22)
[2016-09-12] MEDS: Zolpidem TAB* 10 MG PO PRN (20:22)
[2016-09-12] MEDS: Tamsulosin CAP* 0.4 MG PO SCH (20:22)
[2016-09-13] MEDS: HYDROmorphone* 1 MG/ML 1 ML SYR IV SLOW PU PRN ×3 (00:16→08:43)
[2016-09-13] MEDS: Insulin LISPRO* 1 UNITS UNIT SUBCUT SCH ×4 (00:16→17:18)
[2016-09-13] MEDS: NS 0.9% 1000 ML* 1,000 ML IV SCH (04:22)
[2016-09-13 06:21] LABS: BUN/Creatinine Ratio 18.4 (8-20); Calcium 8.6 mg/dL (8.6-10.3); EGFR African American 133.2 (>60); EGFR Non-African American 103.6 (>60)
--- NOTE | 2016-09-13 07:51 | PN ---
Progress Note - Progress Note SOAP: Subjective: []Complains of right upper arm numbness,persistent weakness No LE complaints Left arm normal with some left shoulder pain Objective: []Rt Deltoid 3/5 Biceps,BR 4/5 Strength from triceps down normal Assessment: []Functionally a little better Plan: []D/C when pain controlled Will need EMG to evaluate when 3-4 weeks post injury Collar optional though he seems to like having it
[2016-09-13] MEDS: Gabapentin CAP(*) 300 MG PO SCH ×3 (08:42→20:47)
[2016-09-13] MEDS: Atorvastatin* 20 MG TAB PO SCH (08:42)
[2016-09-13] MEDS: Multivitamins/Minerals TAB PO SCH (08:43)
[2016-09-13] MEDS: Thiamine TAB* 100 MG TAB PO SCH (08:43)
[2016-09-13] MEDS: Carvedilol TAB* 6.25 MG PO SCH ×2 (08:43→20:48)
[2016-09-13] MEDS: Folic Acid TAB* 1 MG PO SCH (08:43)
--- NOTE | 2016-09-13 11:01 | PN ---
Subjective Date of Service: 09/13/16 Interval History: Patient seen this morning. Still reports pain and weakness, mostly in RUE. Ambulated this morning. Working with PT/OT. Family History: Unchanged from Admission Social History: Unchanged from Admission Past Medical History: Unchanged from Admission Objective Active Medications: Acetaminophen (Tylenol Tab*) 650 mg PO Q4H PRN Amitriptyline HCl (Elavil Tab*) 25 mg PO BEDTIME JEANETTE Atorvastatin Calcium (Lipitor*) 20 mg PO DAILY JEANETTE Carvedilol (Coreg Tab*) 6.25 mg PO BID JEANETTE Dextrose (D50w Syringe 50 Ml*) 12.5 gm IV PUSH .FOR FS < 60 - SS PRN Folic Acid (Folvite Tab*) 1 mg PO DAILY JEANETTE Gabapentin (Neurontin Cap(*)) 300 mg PO TID JEANETTE Hydromorphone HCl (Dilaudid Iv*) 1 mg IV SLOW PU Q4H PRN Sodium Chloride (Ns 0.9% 1000 Ml*) 1,000 mls @ 100 mls/hr IV PER RATE JEANETTE Insulin Human Lispro (Humalog*) 0 units SUBCUT Q6HR JEANETTE Lorazepam (Ativan Tab(*)) 0 mg PO .PER WAM SCORE JEANETTE Multivitamins/Minerals (Theragran/Minerals Tab*) 1 tab PO DAILY JEANETTE Ondansetron HCl (Zofran Inj*) 4 mg IV Q6H PRN Tamsulosin HCl (Flomax Cap*) 0.4 mg PO BEDTIME JEANETTE Thiamine HCl (Vitamin B-1 Tab*) 100 mg PO DAILY JEANETTE Zolpidem Tartrate (Ambien Tab*) 10 mg PO BEDTIME PRN Vital Signs 09/12/16 09/12/16 09/12/16 11:40 12:07 12:59 Temperature 98.3 F Pulse Rate 98 Respiratory 18 20 20 Rate Blood Pressure 135/76 (mmHg) O2 Sat by Pulse 95 Oximetry 09/13/16 09/13/16 09/13/16 03:49 04:22 05:19 Temperature 98.5 F 98.3 F Pulse Rate 99 102 Respiratory 20 16 16 Rate Blood Pressure 129/84 129/85 (mmHg) O2 Sat by Pulse 96 96 Oximetry 09/13/16 09/13/16 09/13/16 05:22 06:36 07:31 Temperature 98.8 F Pulse Rate 98 Respiratory 16 20 20 Rate Blood Pressure 135/84 (mmHg) O2 Sat by Pulse 95 96 Oximetry Oxygen Devices in Use Now: None Appearance: Middle-aged, M, sitting in chair in NAD Eyes: No Scleral Icterus Ears/Nose/Mouth/Throat: Mucous Membranes Moist Neck: NL Appearance and Movements; NL JVP, - - c-collar in place Respiratory: Symmetrical Chest Expansion and Respiratory Effort, Clear to Auscultation Cardiovascular: NL Sounds; No Murmurs; No JVD, RRR Abdominal: NL Sounds; No Tenderness; No Distention Lymphatic: No Cervical Adenopathy Extremities: No Edema Skin: No Rash or Ulcers Neurological: Alert and Oriented x 3, - - 5/5 strength in LUE, reports pain with light touch from shoudler to wrist on LUE, R deltoid strength limited by pain, 4/5 R elbow flexion/extension, 4/5 R tow operator strength Result Diagrams: 09/12/16 04:21 09/13/16 05:49 Microbiology and Other Data: Microbiology 09/11/16 20:35 Aerobic Blood Culture - Preliminary Blood Venous No Growth Day 1 Anaerobic Blood Culture - Preliminary No Growth Day 1 09/11/16 20:33 Aerobic Blood Culture - Preliminary Blood Venous No Growth Day 1 Anaerobic Blood Culture - Preliminary No Growth Day 1 Assess/Plan/Problems-Billing Assessment: Syncope, rhabdomyolysis, B/L arm pain and weakness 2/2 cervical disc protrusion and/or brachial plexopathy in a 61 yo M with hx of HTN, CAD, DM, TIA - Patient Problems (1) Arm pain Current Visit: Yes Comment: and weakness. Appreciate Neurology and NS assistance. Due to brachial plexopathy vs cervical disc protrusion. No surgical intervention as per NS. XR and MRI of the shoulder/brachial plexus unremarkable. Continue gabapentin, switch to PO percocet. PT/OT. Will need EMG in 3-4 weeks. (2) Syncope Current Visit: Yes Comment: Likely vasovagal. No events on tele. Trops negative, EEG WNL. (3) Rhabdomyolysis Current Visit: Yes Comment: Resolving. Stop IVF. (4) CALVIN (acute kidney injury) Current Visit: Yes Comment: and lactic acidosis. Resolved with IVF. (5) CAD (coronary artery disease) Current Visit: Yes Comment: Continue Coreg, statin. (6) TIA (transient ischemic attack) Current Visit: Yes Comment: Patient says his receptionist doctor's office has insisted on his continued coumadin in the past, I suspect there must be some other reason besides TIA. Patient says he does not fall frequently, maybe 1-2x/year, almost always associated with drinking EtOH. Will restart his home coumadin tonight. (7) HTN (hypertension) Current Visit: Yes Comment: Continue Coreg. Holding ACEI and spironolactone. (8) Alcohol abuse Current Visit: Yes Comment: Continue thiamine, folate, MVM. Will stop WAM. (9) Diabetes Current Visit: Yes Comment: HISS (10) DVT prophylaxis Current Visit: Yes Comment: Coumadin/SCDs Status and Disposition: Pending PT/OT eval
[2016-09-13] MEDS: oxyCODONE/Acetamin 5/325 MG* TAB PO PRN ×3 (12:47→20:48)
[2016-09-13] MEDS ORDERED: Warfarin TAB(*) 10 MG PO ONE (17:00)
[2016-09-13] MEDS: Ibuprofen TAB* 600 MG PO PRN (17:53)
[2016-09-13] MEDS: Tamsulosin CAP* 0.4 MG PO SCH (20:48)
[2016-09-13] MEDS: Amitriptyline TAB* 25 MG PO SCH (20:48)
[2016-09-13] MEDS: Zolpidem TAB* 10 MG PO PRN (20:51)
[2016-09-13] MEDS ORDERED: Dextrose 50% Syringe 50 ML* 25 GM/50 ML SYRINGE IV PUSH PRN (21:28)
[2016-09-14] MEDS: Ibuprofen TAB* 600 MG PO PRN ×2 (00:20→05:42)
[2016-09-14] MEDS: oxyCODONE/Acetamin 5/325 MG* TAB PO PRN ×2 (02:27→06:10)
[2016-09-14] MEDS ORDERED: Insulin LISPRO* 1 UNITS UNIT SUBCUT SCH (07:30)
[2016-09-14] MEDS: Multivitamins/Minerals TAB PO SCH (08:33)
[2016-09-14] MEDS: Atorvastatin* 20 MG TAB PO SCH (08:33)
[2016-09-14] MEDS: Folic Acid TAB* 1 MG PO SCH (08:34)
[2016-09-14] MEDS: Thiamine TAB* 100 MG TAB PO SCH (08:34)
[2016-09-14] MEDS: Gabapentin CAP(*) 300 MG PO SCH (08:34)
[2016-09-14] MEDS: Carvedilol TAB* 6.25 MG PO SCH (08:34)
[2016-09-14] MEDS ORDERED: Docusate CAP* 100 MG PO PRN (08:36)
[2016-09-14] MEDS ORDERED: Senna TAB PO PRN (08:36)
--- NOTE | 2016-09-14 08:36 | DCNOTE ---
Patient seen this morning. Feels that R arm seems to be about the same although less pain today, maybe more numb. No fever or chills. Eating and drinking. No BM. On exam, RRR, s1 and s2 present, no m/g/r, abd soft, NTND, BS+, RUE weakness about the same, more proximal, good belt tender strength. Plan to discharge today. Will need outpatient NS follow-up. Also will need outpatient OT.
[2016-09-14 08:38] VITALS: BP 128/84
[2016-09-14] MEDS ORDERED: Fluticasone NASAL SPRAY 50MCG* 16 gm SPRAY BTL BOTH NARES SCH (09:00)
--- NOTE | 2016-09-15 07:51 | DS ---
DISCHARGE SUMMARY: DATE OF ADMISSION: 09/11/16 DATE OF DISCHARGE: 09/14/16 PRIMARY CARE PHYSICIAN: Willie Grimaldo MD CONSULTANTS DURING THE HOSPITALIZATION: 1. Mustapha Linder MD, Neurology. 2. Mustapha Jones MD, Neurosurgery. PRINCIPAL DISCHARGE DIAGNOSIS: 1. C3-C4 disk herniation, possible brachial plexopathy. 2. Arm pain and weakness. 3. Syncope. SECONDARY DIAGNOSES: 1. Hypertension. 2. Coronary artery disease. 3. Transient ischemic attack. 4. Diabetes. DISCHARGE MEDICATION REGIMEN: 1. Flomax 0.4 mg by mouth at bedtime. 2. Ambien 10 mg by mouth at bedtime for insomnia. 3. Warfarin 10 mg Friday, Friday, Friday, and Friday and 5 mg Friday , Friday, and . 4. Spironolactone 25 mg by moth daily. 5. Ramipril 10 mg by mouth daily. 6. [place]-3 fatty acids 2000 mg by mouth daily. 7. Niacin 500 mg by mouth daily. 8. Metformin 1000 mg by mouth 2 times daily. 9. Glimepiride 4 mg by mouth daily. 10 Coreg 6.25 mg by mouth 2 times daily. 11. Atorvastatin 20 mg by mouth daily. 12. Amitriptyline 25 mg by mouth daily. 13. Percocet 5/325 mg 1 tablet by mouth every 4 hours as needed for pain. 14. Senna 1 tablet by mouth daily as needed for constipation. 15. Ibuprofen 600 mg by mouth every 6 hours as needed for pain. 16. Gabapentin 300 mg by mouth 3 times daily. 17. Colace 100 mg by mouth 2 times daily for constipation. STUDIES DONE DURING HOSPITALIZATION: CT of the brain without contrast, impression: There is a small area of decreased density within the subcortical white matter and posterior left frontal lobe possible representing a subacute or chronic infarct. Chest x-ray impression: Persistent pleural and parenchymal changes, left lung base with rib fracture, no acute findings. CT of the cervical spine impression: No fracture identified, extensive degenerative disk disease at C3-C4, C4-C5, C5-C6, and C6-C7 with uncovertebral joint, bilateral foraminal stenosis in multiple levels. MRI of the brain without contrast, impression: There is a 1 cm focus of increased fluid density in the left parietal lobe, white matter tracks that extends to his midbrain cortex. There is no corresponding increased signal on diffusion-weighted imaging and therefore subacute to chronic is favored. There is no evidence of acute territorial infarction or acute intracranial hemorrhage. MRI of the cervical spine, impression: Multilevel degenerative change causing multilevel central canal and neural foraminal stenosis severely affecting C3, C4. EEG, impression: Essentially normal awake and drowsy EEG. Shoulder x-ray, impression: AC joint arthritis and degenerative changes at the glenohumeral joint. MRI of the chest, impression: No hematoma, soft tissue edema, or other lesion evident along course of the right brachial plexus. HISTORY OF PRESENT ILLNESS AND HOSPITAL SUMMARY: Please see the full history and physical by Juventino Driver NP, for full details. Briefly, Mr. Herring is a 61- year-old male with past medical history as above who presented to the hospital after he had an episode of syncope the morning after excessive drinking. This occurred when he was on the toilet straining for a bowel movement. The patient fell and was lodged awkwardly between the toilet and his bathtub. He woke up 3 hours later and had had significant neck and bilateral arm pain with significant right upper extremity weakness. The patient was admitted to the hospital and underwent an extensive imaging that did not show anything requiring acute surgical intervention. It was felt that the patient may have exacerbated his already present cervical spinal disease and possible injured his brachial plexus. His INR was elevated on admission; however, additional imaging of the shoulder and brachial plexus with MRI did not show any evidence of hematoma. The patient was seen by Dr. Linder of neurology and Dr. Jones of neurosurgery who felt that at this time supportive care and rehab is the best treatment for the patient. He was started on pain medication and over the following days, had some slight improvement in his right upper extremity weakness along with moderate improvement in his pain control. The patient was evaluated by occupational and physical therapy who felt the patient was safe for discharge and he will continue to get outpatient occupational therapy. Dr. Jones recommended the patient have an EMG to evaluate his right upper extremity about 3 to 4 weeks after discharge. The patient will followup with his PCP as well as with Dr. Jones as an outpatient. TIME SPENT: Total time spent on this discharge, 40 minutes. This is a summary of the hospitalization. Please see the full medical record for further details. CC: Dr. Grimaldo* [id number]/CPS #: [id number] [facility] CENTERAlexus
== END 2016-09-14 11:10 | disposition home or self-care (01) ==
LOC: ED 11:16 → MEDTELE 16:28
PROVIDERS: ADMIT Internal Medicine; ATTEND Hospitalist
DX: R55 Syncope and collapse (principal); R53.1 Weakness; I25.10 Atherosclerotic heart disease of native coronary artery without angina pectoris; I25.2 Old myocardial infarction; Z86.73 Personal history of transient ischemic attack (TIA), and cerebral infarction without residual deficits; E11.9 Type 2 diabetes mellitus without complications; I10 Essential (primary) hypertension; E87.5 Hyperkalemia; E87.2 Acidosis; F10.10 Alcohol abuse, uncomplicated; F17.200 Nicotine dependence, unspecified, uncomplicated; M62.82 Rhabdomyolysis; M19.011 Primary osteoarthritis, right shoulder; M48.02 Spinal stenosis, cervical region; M50.323 Other cervical disc degeneration at C6-C7 level; S22.32XA Fracture of one rib, left side, initial encounter for closed fracture; X58.XXXA Exposure to other specified factors, initial encounter; Z87.891 Personal history of nicotine dependence; Z79.01 Long term (current) use of anticoagulants
CPT/HCPCS: 36415; 70450; 70551; 71010; 71550; 72125; 72141; 80048; 80053; 80061; 80320; 81003; 82550; 83036; 83605; 84484; 85025; 85610; 85730; 86850; 86900; 86901; 87040; 87086; 93005; 95816; 96374; 96375; 99285; 99406; A9270-GY; G0378; G0480; J0696; J1170; J2270; J2405

== ENCOUNTER 2016-12-22 08:58 | Emergency (ER) | payer BC ==
[2016-12-22] MEDS ORDERED: NS 0.9% 1000 ML* 2,000 ML IV ONE (09:21)
--- NOTE | 2016-12-22 09:44 | RAD ---
Indication: Dizziness. Single frontal view of the chest performed at 0940 hours was reviewed. Comparison is made with previous exam dated September 11, 2016. No mediastinal shift is noted. Heart is of normal size and configuration. Lung alas appear clear. Healing rib fractures are noted in the left lower ribs. IMPRESSION: NO DEFINITE PNEUMONIA IS IDENTIFIED ALTHOUGH HEALING RIB FRACTURES NOTED IN THE LEFT RIBS IS IDENTIFIED PREVIOUSLY SEPTEMBER 11, 2016
[2016-12-22 10:12] LABS: Hematocrit 42 % (42-52); Mean Corpuscular HGB Conc 33 g/dl (31-36); Mean Corpuscular Hemoglobin 32 pg (27-31); Mean Corpuscular Volume 97 fL (80-94); Mean Platelet Volume 9 um3 (7.4-10.4); Red Blood Count 4.33 10^6/ul (4.0-5.4); Red Cell Distribution Width 14 % (10.5-15); White Blood Count 12.8 10^3/ul (3.5-10.8)
[2016-12-22 10:25] LABS: BUN/Creatinine Ratio 14.8 (8-20); Calcium 8.5 mg/dL (8.6-10.3); EGFR African American 88.8 (>60); EGFR Non-African American 69.1 (>60); Globulin 2.3 g/dL (2-4); Magnesium 1.6 mg/dL (1.9-2.7); Potassium 5.3 mmol/L (3.5-5.0); Total Bilirubin 0.5 mg/dL (0.2-1.0); Total Protein 6.3 g/dL (6.4-8.9)
[2016-12-22 10:27] LABS: Troponin I 0.01 ng/mL (<0.04)
[2016-12-22 10:28] LABS: Add Diff/Slide Review? Slide Review Added; Comments Flag Yes
[2016-12-22 11:22] LABS: TSH (Thyroid Stimulating Horm) 2.62 mcIU/mL (0.34-5.60)
[2016-12-22] MEDS ORDERED: Magnesium Oxide TAB* 400 MG PO ONE (12:49)
[2016-12-22 14:21] LABS: Albumin 3.9 g/dL (3.2-5.2); BUN/Creatinine Ratio 18.3 (8-20); Calcium 8.7 mg/dL (8.6-10.3); EGFR Non-African American 94.9 (>60); Globulin 2.2 g/dL (2-4); Total Bilirubin 0.6 mg/dL (0.2-1.0); Total Protein 6.1 g/dL (6.4-8.9)
--- NOTE | 2016-12-22 14:24 | ED ---
Anna Rodriguez Thomas, scribed for Sky Whatley MD on 12/22/16 at 0921 . Dizziness - HPI Summary HPI Summary: The pt is a 61 y/o M BIBA c/o dizziness characterized as near-syncope that began at 07:30 this AM. He attributes this to dehydration and low blood pressure. The pt is hypotensive the ED. The pt reports that he "drank quite a bit" last night. The pt denies CP, SOB, palpitations, N/V, fevers, chills, abd pain, diarrhea, CHE, blurred vision, neck pain, and sore throat. He was a patient at [facility] ago after he was unconscious for four hours, during which he suffered nerve damage. PMHx: DM, HTN, TIA, GA. SHx: smoking (former), occasional drinking. - History Of Current Complaint Chief Complaint: EDDizziness Stated Complaint: LOW BP Time Seen by Provider: 12/22/16 09:10 Hx Obtained From: Patient Timing: Hours - onset this AM at 07:30 Character: Lightheaded - and near-syncope, Dizzy Associated Signs And Symptoms: Negative: Nausea, Vomiting, Diarrhea, Chest Pain , SOB, Palpitations, Fever, Chills, Other: - NEG: abd pain, CHE, neck pain, sore throat - Allergies/Home Medications Allergies/Adverse Reactions: Allergies Allergy/AdvReac Type Severity Reaction Status Date / Time No Known Allergies Allergy Verified 09/11/16 12:32 PMH/Surg Hx/FS Hx/Imm Hx Previously Healthy: No Endocrine/Hematology History: Reports: Hx Diabetes Cardiovascular History: Reports: Hx Hypertension, Hx Myocardial Infarction Denies: Hx Pacemaker/ICD Respiratory History: Denies: Hx Asthma, Hx Chronic Obstructive Pulmonary Disease (COPD) History: Denies: Hx Dialysis, Hx Renal Disease Musculoskeletal History: Denies: Hx Back Problems Sensory History: Reports: Hx Contacts or Glasses Denies: Hx Hearing Aid Opthamlomology History: Reports: Hx Contacts or Glasses Neurological History: Reports: Hx Transient Ischemic Attacks (TIA) Denies: Hx Dementia, Hx Seizures Psychiatric History: Denies: Hx Panic Disorder - Surgical History Surgery Procedure, Year, and Place: CARDIAC CATH WITH STENTING Infectious Disease History: No Infectious Disease History: Denies: Traveled Outside the [place] in Last 30 Days - Family History Known Family History: Positive: Cardiac Disease, Diabetes - Social History Alcohol Use: Occasionally Alcohol Amount: rum, half a bottle Substance Use Type: Reports: None Hx Tobacco Use: Yes Smoking Status (MU): Former Smoker Review of Systems Constitutional: Other - POS: hypotensive Negative: Fever, Chills Eyes: Negative ENT: Negative Negative: Sore Throat Cardiovascular: Negative Negative: Palpitations, Chest Pain Respiratory: Negative Negative: Shortness Of Breath Gastrointestinal: Negative Negative: Abdominal Pain, Vomiting, Diarrhea, Nausea Genitourinary: Negative Musculoskeletal: Negative Negative: Other - NEG: neck pain Skin: Negative Neurological: Other - POS: dizziness characterized as near-syncope; NEG: blurred vision Negative: Headache Psychological: Normal All Other Systems Reviewed And Are Negative: Yes Physical Exam - Summary Physical Exam Summary: VITAL SIGNS: Reviewed. GENERAL: Patient is a well-developed and nourished male who is lying comfortable in the stretcher. Patient is not in any acute respiratory distress. HEAD AND FACE: No signs of trauma. No ecchymosis, hematomas or skull depressions. No sinus tenderness. EYES: PERRLA, EOMI x 2, No injected conjunctiva, no nystagmus. EARS: Hearing grossly intact. Ear canals and tympanic membranes are within normal limits. MOUTH: Oropharynx within normal limits. NECK: Supple, trachea is midline, no adenopathy, no JVD, no carotid bruit, no c- spine tenderness, neck with full ROM. CHEST: Symmetric, no tenderness at palpation LUNGS: Clear to auscultation bilaterally. No wheezing or crackles. CVS: Regular rate and rhythm, S1 and S2 present, no murmurs or gallops appreciated. ABDOMEN: Soft, non-tender. No signs of distention. No rebound no guarding, and no masses palpated. Bowel sounds are normal. EXTREMITIES: FROM in all major joints, no edema, no cyanosis or clubbing. NEURO: Alert and oriented x 3. No acute neurological deficits. Speech is normal and follows commands. SKIN: Dry and warm Triage Information Reviewed: Yes Vital Signs On Initial Exam: Initial Vitals Temp Pulse Resp BP Pulse Ox 97.3 F 87 18 87/53 97 12/22/16 09:07 12/22/16 09:07 12/22/16 09:07 12/22/16 09:07 12/22/16 09:07 Vital Signs Reviewed: Yes - Reyna Coma Scale Coma Scale Total: 15 Diagnostics - Vital Signs Vital Signs Temp Pulse Resp BP Pulse Ox 12/22/16 09:07 97.3 F 87 18 87/53 97 - Laboratory Lab Results: Lab Results 12/22/16 12/22/16 12/22/16 Range/Units 10:00 10:00 10:00 WBC 12.8 H (3.5-10.8) 10^3/ul RBC 4.33 (4.0-5.4) 10^6/ul Hgb 14.0 (14.0-18.0) g/dl Hct 42 (42-52) % MCV 97 H (80-94) fL MCH 32 H (27-31) pg MCHC 33 (31-36) g/dl RDW 14 (10.5-15) % Plt Count 161 (150-450) 10^3/ul MPV 9 (7.4-10.4) um3 Neut % (Auto) 82.3 (38-83) % Lymph % (Auto) 11.5 L (25-47) % [place] % (Auto) 4.4 (1-9) % Eos % (Auto) 0.4 (0-6) % Baso % (Auto) 1.4 (0-2) % Absolute Neuts (auto) 10.5 H (1.5-7.7) 10^3/ul Absolute Lymphs (auto) 1.5 (1.0-4.8) 10^3/ul Absolute Monos (auto) 0.6 (0-0.8) 10^3/ul Absolute Eos (auto) 0.1 (0-0.6) 10^3/ul Absolute Basos (auto) 0.2 (0-0.2) 10^3/ul Absolute Nucleated RBC 0 10^3/ul Nucleated RBC % 0 Sodium 131 L (133-145) mmol/L Potassium 5.3 H (3.5-5.0) mmol/L Chloride 99 L (101-111) mmol/L Carbon Dioxide 17 L (22-32) mmol/L Anion Gap 15 H (2-11) mmol/L BUN 16 (6-24) mg/dL Creatinine 1.08 (0.67-1.17) mg/dL Est GFR ( Amer) 88.8 (>60) Est GFR (Non-Af Amer) 69.1 (>60) BUN/Creatinine Ratio 14.8 (8-20) Glucose 120 H (70-100) mg/dL Lactic Acid 4.8 H* (0.5-2.0) mmol/L Calcium 8.5 L (8.6-10.3) mg/dL Magnesium 1.6 L (1.9-2.7) mg/dL Total Bilirubin 0.50 (0.2-1.0) mg/dL AST 44 H (13-39) U/L ALT 62 H (7-52) U/L Alkaline Phosphatase 77 (34-104) U/L Troponin I 0.01 (<0.04) ng/mL B-Natriuretic Peptide ( - 100) pg/mL Total Protein 6.3 L (6.4-8.9) g/dL Albumin 4.0 (3.2-5.2) g/dL Globulin 2.3 (2-4) g/dL Albumin/Globulin Ratio 1.7 (1-3) TSH 2.62 (0.34-5.60) mcIU/mL Serum Alcohol 43 H (<10) mg/dL 12/22/16 12/22/16 Range/Units 10:00 13:33 WBC (3.5-10.8) 10^3/ul RBC (4.0-5.4) 10^6/ul Hgb (14.0-18.0) g/dl Hct (42-52) % MCV (80-94) fL MCH (27-31) pg MCHC (31-36) g/dl RDW (10.5-15) % Plt Count (150-450) 10^3/ul MPV (7.4-10.4) um3 Neut % (Auto) (38-83) % Lymph % (Auto) (25-47) % [place] % (Auto) (1-9) % Eos % (Auto) (0-6) % Baso % (Auto) (0-2) % Absolute Neuts (auto) (1.5-7.7) 10^3/ul Absolute Lymphs (auto) (1.0-4.8) 10^3/ul Absolute Monos (auto) (0-0.8) 10^3/ul Absolute Eos (auto) (0-0.6) 10^3/ul Absolute Basos (auto) (0-0.2) 10^3/ul Absolute Nucleated RBC 10^3/ul Nucleated RBC % Sodium 131 L (133-145) mmol/L Potassium 5.0 (3.5-5.0) mmol/L Chloride 100 L (101-111) mmol/L Carbon Dioxide 19 L (22-32) mmol/L Anion Gap 12 H (2-11) mmol/L BUN 15 (6-24) mg/dL Creatinine 0.82 (0.67-1.17) mg/dL Est GFR ( Amer) 122.0 (>60) Est GFR (Non-Af Amer) 94.9 (>60) BUN/Creatinine Ratio 18.3 (8-20) Glucose 105 H (70-100) mg/dL Lactic Acid (0.5-2.0) mmol/L Calcium 8.7 (8.6-10.3) mg/dL Magnesium (1.9-2.7) mg/dL Total Bilirubin 0.60 (0.2-1.0) mg/dL AST 45 H (13-39) U/L ALT 61 H (7-52) U/L Alkaline Phosphatase 80 (34-104) U/L Troponin I (<0.04) ng/mL B-Natriuretic Peptide 16 ( - 100) pg/mL Total Protein 6.1 L (6.4-8.9) g/dL Albumin 3.9 (3.2-5.2) g/dL Globulin 2.2 (2-4) g/dL Albumin/Globulin Ratio 1.8 (1-3) TSH (0.34-5.60) mcIU/mL Serum Alcohol (<10) mg/dL Result Diagrams: 12/22/16 10:00 12/22/16 13:33 Lab Statement: Any lab studies that have been ordered have been reviewed, and results considered in the medical decision making process. - Radiology CXR Xray Interpretation: No Acute Changes - NO DEFINITE PNEUMONIA IS IDENTIFIED ALTHOUGH HEALING RIB FRACTURES NOTED IN THE LEFT RIBS IS IDENTIFIED PREVIOUSLY SEPTEMBER 11, 2016 Radiology Interpretation Completed By: Radiologist - EKG 09:17 Cardiac Rate: NL - 87 EKG Interpretation: Sinus rhythm. No significant changes from previous EKG at . Re-Evaluation - Re-Evaluation First Eval Re-Evaluation Time: 13:03 Change: Improved - He is feeling much better. His BP is now 124/77 and he wants to go home, but we will repeat a CBC. Dizzy Course/Dx - Course Assessment/Plan: The pt is a 61 y/o M BIBA c/o dizziness characterized as near- syncope that began at 07:30 this AM. He attributes this to dehydration and low blood pressure. The pt is hypotensive the ED. The pt reports that he "drank quite a bit" last night. The pt denies CP, SOB, palpitations, N/V, fevers, chills, abd pain, diarrhea, CHE, blurred vision, neck pain, and sore throat. He was a patient at [facility] four [place] ago after he was unconscious for four hours, during which he suffered nerve damage. PMHx: DM, HTN, TIA, GA. SHx: smoking ( former), occasional drinking. In the ED course an IV access was obtained. Patient was placed in a patient relations specialist. Patient was started with 2 liters of IV fluids since patient is hypotensive. Labs within normal limits except for. Troponin #1: and Troponin # 2 (4 hours later): EKG shows a NSR at 82 BPM w/[address] elevations. CXR impression: No acute pathology. Patient was hydrated and he is feeling better, Orthostatics are negative. Repeat CMP: Patient is ambulating in the ED and he is tolerating PO. I discussed all the findings and test results with the patient. Patient was instructed to return to the emergency room immediately if any of the symptoms return or worsens. Plan of care was discussed with the patient and understands and agrees. All questions were answered at patient satisfaction. There were no further complaints or concerns. Lung exam before discharge: CTA B/L. Good air exchange. No wheezing or crackles heard. CVS: S1 and S2 present. No murmurs appreciated. Patient is alert and oriented x 3. Patient is hemodynamically stable. Patient will be discharged home with follow up PCP in the next 2-3 days - Diagnoses Differential Diagnosis/HQI/PQRI: Other - Dizziness, Vertigo, dehydration Provider Diagnoses: Dizziness Discharge - Discharge Plan Condition: Stable Disposition: HOME Patient Education Materials: Dizziness (ED) Referrals: Willie Grimaldo MD [Primary Care Provider] - 3 Days The documentation as recorded by the Anna benavides Thomas accurately reflects the service I personally performed and the decisions made by me, Sky Whatley MD.
[2016-12-22 14:43] VITALS: BP 123/76
== END 2016-12-22 14:43 | disposition home or self-care (01) ==
LOC: ED 08:58
DX: R42 Dizziness and giddiness (principal); R55 Syncope and collapse; E11.9 Type 2 diabetes mellitus without complications; Z86.79 Personal history of other diseases of the circulatory system
CPT/HCPCS: 36415; 71010; 80053; 80320; 83605; 83735; 83880; 84443; 84484; 85025; 93005; 99284; G0480